=== PATIENT | male | born 1985 | race American Indian/Alaskan Native ===

== ENCOUNTER 2017-08-19 17:05 | Emergency (ER) | payer OTHER ==
[2017-08-19 17:12] VITALS: BMI 34.8
[2017-08-19 17:13] VITALS: RESP 18
[2017-08-19] MEDS ORDERED: Sodium Chloride 0.9% 1,000 ML IV STA (17:16)
[2017-08-19] MEDS ORDERED: DiphenhydrAMINE 50 mg/ml Inj IVP STA (17:16)
--- NOTE | 2017-08-19 17:19 | ED PDOC ---
Arrival/HPI - General Chief Complaint: Headache Time Seen by Provider: 08/19/17 17:10 Historian: Patient - History of Present Illness Narrative History of Present Illness (Text): 08/19/17 17:16 32 y/o male, pmh including migraine, c/o migraine headache about 1 hour ago at home. Aching and throbbing pain, feels like his usual migraine headache, took advil prior to arrival which the headache decreased but not completely resolved , no change in vision, no painful movement of the eye, no chest pain or shortness of breath, no night sweat, no numbness or tingling, no other medical or psychological complaints. Past Medical History - Provider Review Nursing Documentation Reviewed: Yes - Infectious Disease Hx of Infectious Diseases: None Family/Social History - Physician Review Nursing Documentation Reviewed: Yes Family/Social History: Unknown Family HX Allergies/Home Meds Allergies/Adverse Reactions: Allergies No Known Allergies Allergy (Verified 08/19/17 17:12) Review of Systems - Review of Systems Constitutional: absent: Fatigue, Fevers Eyes: absent: Vision Changes ENT: absent: Hearing Changes Respiratory: absent: SOB, Cough Cardiovascular: absent: Chest Pain Gastrointestinal: absent: Abdominal Pain, Nausea, Vomiting Musculoskeletal: absent: Arthralgias, Back Pain Skin: absent: Rash, Pruritis Neurological: Headache. absent: Dizziness, Focal Weakness Psychiatric: absent: Anxiety, Depression, Suicidal Ideation Physical Exam Vital Signs Reviewed: Yes Vital Signs Temp Pulse Resp BP Pulse Ox 08/19/17 17:05 99.3 F 86 18 127/78 99 Temperature: Afebrile Blood Pressure: Normal Pulse: Regular Respiratory Rate: Normal Appearance: Positive for: Well-Appearing, Non-Toxic, Comfortable Pain Distress: Moderate Mental Status: Positive for: Alert and Oriented X 3 - Systems Exam Head: Present: Atraumatic, Normocephalic, Other (no temporal artery tenderness, no jaw claudication. ). No: Tenderness, Contusion, Swelling, Ecchymosis, Abrasion, Laceration Pupils: Present: PERRL, Other (no periorbital swelling and no painful movement of the eye. ) Extroacular Muscles: Present: EOMI Conjunctiva: Present: Normal Ears: Present: NORMAL TM, Normal Canal. No: Erythema Mouth: Present: Moist Mucous Membranes Neck: Present: Normal Range of Motion, Trachea Midline. No: Meningeal Signs, MIDLINE TENDERNESS, Paraspinal Tenderness, Lymphadenopathy Respiratory/Chest: Present: Clear to Auscultation, Good Air Exchange. No: Respiratory Distress, Accessory Muscle Use Cardiovascular: Present: Regular Rate and Rhythm, Normal S1, S2. No: Murmurs Abdomen: No: Tenderness, Distention, Peritoneal Signs Back: Present: Normal Inspection Upper Extremity: Present: Normal Inspection. No: Cyanosis, Edema Lower Extremity: Present: Normal Inspection. No: Edema Neurological: Present: GCS=15, CN II-XII Intact, Speech Normal, Motor Func Grossly Intact, Gait Normal, Memory Normal, Other (negative kernig and brudzinski signs) Skin: Present: Warm, Dry, Normal Color. No: Rashes Psychiatric: Present: Alert, Oriented x 3, Normal Insight, Normal Concentration Medical Decision Making ED Course and Treatment: 08/19/17 17:18 -labs -IVF/reglan/benadryl -Observe and reassess 08/19/17 18:27 -Headache resolved, food and drinks given, request to be discharged home, afebrile, no focal neurological deficits, walking with normal gait and posture, no neck stiffness, will discharge home. Case discussed with Dr. Ly and he agreed on the dispo. Pt. has no homicida/suicidal ideation, no auditory or visual hallucination. -Discharge home tylenol, bed rest, stay hydrated, follow up with your own pmd and neurologist within 2 days, return to the ER for any new or worsening signs or symptoms. - Lab Interpretations Lab Results: 08/19/17 17:45 08/19/17 17:45 Lab Results 08/19/17 17:45: WBC 5.3, RBC 4.92, Hgb 13.9 L, Hct 42.4, MCV 86.2, MCH 28.3, MCHC 32.8, RDW 12.2, Plt Count 220, MPV 10.4, Gran % 49.4 L, Lymph % (Auto) 37.9 H, Hudson % (Auto) 4.3, Eos % (Auto) 7.3 H, Baso % (Auto) 1.1, Gran # 2.63, Lymph # (Auto) 2.0, Hudson # (Auto) 0.2, Eos # (Auto) 0.4, Baso # (Auto) 0.06 08/19/17 17:45: Sodium Pending, Potassium Pending, Chloride Pending, Carbon Dioxide Pending, Anion Gap Pending, BUN Pending, Creatinine 1.0, Est GFR ( Amer) > 60, Est GFR (Non-Af Amer) > 60, Random Glucose 98, Calcium 9.6, Magnesium Pending, Total Bilirubin 0.9, AST Pending, ALT Pending, Alkaline Phosphatase Pending, Total Creatine Kinase 179, Total Protein Pending, Albumin Pending, Globulin Pending, Albumin/Globulin Ratio Pending - Medication Orders Current Medication Orders: Discontinued Medications Diphenhydramine HCl (Benadryl) 25 mg IVP STAT STA Stop: 08/19/17 17:17 Last Admin: 08/19/17 17:50 Dose: 25 mg IVP Administration Document 08/19/17 17:50 SRE (Rec: 08/19/17 17:55 SRE [id number]) Charges for Administration # of IVP Administrations 1 Sodium Chloride (Sodium Chloride 0.9%) 1,000 mls @ 999 mls/hr IV .Q1H1M STA Stop: 08/19/17 18:16 Last Admin: 08/19/17 17:56 Dose: 999 mls/hr eMAR Start Stop Document 08/19/17 17:56 SRE (Rec: 08/19/17 17:57 SRE [id number]) Intravenous Solution Start Date 08/19/17 Start Time 17:30 End Date 08/19/17 End time 18:30 Total Infusion Time 60 Metoclopramide HCl (Reglan) 10 mg IVP STAT STA Stop: 08/19/17 17:17 Last Admin: 08/19/17 17:54 Dose: 10 mg IVP Administration Document 08/19/17 17:54 SRE (Rec: 08/19/17 17:54 SRE [id number]) Charges for Administration # of IVP Administrations 1 - PA / [employer] / Resident Statement /DO has reviewed & agrees with the documentation as recorded. Disposition/Present on Arrival - Present on Arrival Any Indicators Present on Arrival: No History of DVT/PE: No History of Uncontrolled Diabetes: No Urinary Catheter: No History of Decub. Ulcer: No History Surgical Site Infection Following: None - Disposition Have Diagnosis and Disposition been Completed?: Yes Diagnosis: Headache Disposition: HOME/ ROUTINE Disposition Time: 17:19 Patient Plan: Discharge Patient Problems: Current Active Problems Problem Status Onset Headache Acute Condition: IMPROVED Additional Instructions: -Discharge home tylenol, bed rest, stay hydrated, follow up with your own pmd and neurologist within 2 days, return to the ER for any new or worsening signs or symptoms. Prescriptions: Acetaminophen [Tylenol 325mg tab] 2 tab PO QID PRN #30 tab PRN Reason: Other Referrals: Candace Jo MD [Staff Provider] - Follow up with primary Forms: WORK NOTE
[2017-08-19 18:03] LABS: BASO # 0.06 K/mm3 (0.0-2.0); BASO % 1.1 % (0.0-3.0); EOS # 0.4 (0.0-0.7); EOS % 7.3 % (1.5-5.0); GRAN # 2.63 (1.4-6.5); GRAN % 49.4 % (50.0-68.0); HEMOGLOBIN 13.9 g/dL (14.0-18.0); LYMPH % 37.9 % (22.0-35.0); MEAN CELL VOLUME 86.2 fl (80.0-105.0); MEAN CORPUSCULAR HEMOGLOBIN 28.3 pg (25.0-35.0); MEAN CORPUSCULAR HGB CONC 32.8 g/dl (31.0-37.0); MEAN PLATELET VOLUME 10.4 fl (7.0-11.0); MONO # 0.2 (0.1-0.6); MONO % 4.3 % (1.0-6.0); RBC 4.92 10^6/uL (3.5-6.1); RED CELL DISTRIBUTION WIDTH 12.2 % (11.5-14.5); WHITE BLOOD COUNT 5.3 10^3/ul (4.5-11.0)
[2017-08-19 18:11] LABS: CALCIUM 9.6 mg/dL (8.4-10.5); GFR AFRICAN-AMERICAN > 60; GFR NON-AFRICAN AMERICAN > 60
[2017-08-19 18:30] VITALS: BP 112/62; PULSE 79; TEMP 98.7; O2SAT 97
[2017-08-19 18:38] LABS: ALB/GLOB RATIO 1.6 (1.1-1.8); ALBUMIN 4.7 g/dL (3.0-4.8); ALT/SGPT 43 U/L (7-56); AST/SGOT 42 U/L (17-59); BLOOD UREA NITROGEN 12 mg/dL (7-21)
== END 2017-08-19 19:00 | disposition home or self-care (01) ==
LOC: ED 17:05
DX: R51 Headache (principal)
CPT/HCPCS: 80053; 82550; 83735; 85025; 96361; 96374; 96375; 99285; J1200; J2765; J7040

== ENCOUNTER 2018-02-27 19:19 | Inpatient (IN) | payer OTHER ==
[2018-02-27 19:29] VITALS: BMI 28.0
[2018-02-27 19:35] VITALS: O2SAT 100
--- NOTE | 2018-02-27 19:48 | ED PDOC ---
Arrival/HPI - General Chief Complaint: Male Genitourinary Historian: Patient - History of Present Illness Narrative History of Present Illness (Text): 02/27/18 19:47 33yo male with no significant pmhx who present with complaint complaining depression. States he is going through much now and is pushing him to be suicidal, how ever he denies suicidal ideation. States he is currently homeless. Denies HI, hallucination, any somatic complaint. Past Medical History - Provider Review Nursing Documentation Reviewed: Yes - Infectious Disease Hx of Infectious Diseases: None - Psychiatric Hx Substance Use: Yes - Anesthesia Hx Anesthesia: No Family/Social History - Physician Review Nursing Documentation Reviewed: Yes Family/Social History: Unknown Family HX Smoking Status: Current Some Days Smoker Hx Alcohol Use: No Hx Substance Use: Yes Substance used: weed Allergies/Home Meds Allergies/Adverse Reactions: Allergies No Known Allergies Allergy (Verified 08/19/17 17:12) Home Medications: Home Meds Medication Instructions Recorded Confirmed No Known Home Med 02/27/18 02/27/18 Review of Systems - Physician Review All systems were reviewed & negative as marked: Yes - Review of Systems Constitutional: Normal Eyes: Normal ENT: Normal Respiratory: Normal Cardiovascular: Normal Gastrointestinal: Normal Genitourinary Male: Normal Musculoskeletal: Normal Skin: Normal Neurological: Normal Endocrine: Normal Hemo/Lymphatic: Normal Psychiatric: Depression. absent: Suicidal Ideation Physical Exam Vital Signs Reviewed: Yes Vital Signs Temp Pulse Resp BP Pulse Ox 02/27/18 19:30 98.2 F 95 H 18 136/79 100 Temperature: Afebrile Blood Pressure: Normal Pulse: Regular Respiratory Rate: Normal Appearance: Positive for: Well-Appearing, Non-Toxic, Comfortable Pain Distress: None Mental Status: Positive for: Alert and Oriented X 3 - Systems Exam Head: Present: Atraumatic, Normocephalic Pupils: Present: PERRL Extroacular Muscles: Present: EOMI Conjunctiva: Present: Normal Mouth: Present: Moist Mucous Membranes Neck: Present: Normal Range of Motion Respiratory/Chest: Present: Clear to Auscultation, Good Air Exchange. No: Respiratory Distress, Accessory Muscle Use Cardiovascular: Present: Regular Rate and Rhythm, Normal S1, S2. No: Murmurs Abdomen: No: Tenderness, Distention, Peritoneal Signs Back: Present: Normal Inspection Upper Extremity: Present: Normal Inspection. No: Cyanosis, Edema Lower Extremity: Present: Normal Inspection. No: Edema Neurological: Present: GCS=15, CN II-XII Intact, Speech Normal Skin: Present: Warm, Dry, Normal Color. No: Rashes Psychiatric: Present: Alert, Oriented x 3, Normal Insight, Normal Concentration Medical Decision Making ED Course and Treatment: 02/27/18 22:29 Pt presnted to ED for sated history. LAbs UDS EKG CXR PES screener Labs was unremarkable UDS + PCP, THC EKG NSR @ 62bpm CXR PES screener Pete saw pt in ED. DC with the psychiatrist and pt was admitted for depression. Disposition/Present on Arrival - Present on Arrival Any Indicators Present on Arrival: No History of DVT/PE: No History of Uncontrolled Diabetes: No Urinary Catheter: No History of Decub. Ulcer: No History Surgical Site Infection Following: None - Disposition Have Diagnosis and Disposition been Completed?: Yes Diagnosis: Depression, Substance abuse Disposition: HOSPITALIZED Disposition Time: 22:15 Patient Plan: Admission Patient Problems: Current Active Problems Problem Status Onset Depression Acute Substance abuse Acute Condition: STABLE Discharge Instructions (ExitCare): Depression, Adult (DC) Forms: [employer] ([place])
[2018-02-27 20:06] LABS: BASO # 0.07 K/mm3 (0.0-2.0); BASO % 1.1 % (0.0-3.0); EOS # 0.5 (0.0-0.7); EOS % 8.7 % (1.5-5.0); GRAN # 2.59 (1.4-6.5); GRAN % 42.4 % (50.0-68.0); LYMPH # 2.5 (1.2-3.4); LYMPH % 41.6 % (22.0-35.0); MEAN CELL VOLUME 88.2 fl (80.0-105.0); MEAN CORPUSCULAR HEMOGLOBIN 28.5 pg (25.0-35.0); MEAN CORPUSCULAR HGB CONC 32.3 g/dl (31.0-37.0); MEAN PLATELET VOLUME 9.8 fl (7.0-11.0); MONO # 0.4 (0.1-0.6); MONO % 6.2 % (1.0-6.0); PH,URINE 6.5 (4.7-8.0); RBC 4.92 10^6/uL (3.5-6.1); RED CELL DISTRIBUTION WIDTH 12.7 % (11.5-14.5); URINE BILIRUBIN NEGATIVE (NEGATIVE); URINE BLOOD NEGATIVE (NEGATIVE); URINE GLUCOSE (UA) NEGATIVE (NEGATIVE); URINE LEUKOCYTE ESTERASE NEGATIVE Leu/uL (NEGATIVE); URINE PROTEIN NEGATIVE mg/dL (<30 mg/dL); WHITE BLOOD COUNT 6.1 10^3/uL (4.5-11.0)
[2018-02-27 20:11] LABS: ACETAMINOPHEN < 10.0 ug/ml (10.0-20.0); ALB/GLOB RATIO 1.3 (1.1-1.8); ALBUMIN 4.3 g/dL (3.0-4.8); ALT/SGPT 38 U/L (7-56); AST/SGOT 40 U/L (17-59); BLOOD UREA NITROGEN 19 mg/dL (7-21); CALCIUM 9.3 mg/dL (8.4-10.5); GFR NON-AFRICAN AMERICAN > 60; SALICYLATE < 1 mg/dL (2.0-20.0)
[2018-02-27 20:12] LABS: URINE APPEARANCE CLEAR (CLEAR); URINE COLOR YELLOW (YELLOW)
[2018-02-27 20:36] LABS: BARBITURATES, UR NEGATIVE (NEGATIVE); BENZODIAZEPINES, UR NEGATIVE (NEGATIVE); OPIATES, UR NEGATIVE (NEGATIVE); PHENCYCLIDINE, UR POSITIVE (NEGATIVE)
[2018-02-28] MEDS ORDERED: Alum-Mag Hydrox-Simethicone Susp (30 mL) PO PRN (00:51)
[2018-02-28] MEDS ORDERED: Magnesium Hydroxide Susp 30 ml UD PO PRN (00:51)
--- NOTE | 2018-02-28 01:40 | PCM.BM ---
<Dahlia Kapoor - Last Filed: 02/28/18 01:38> Treatment Plan Problems - Problems identified on initial assessmt Problem 1 Date Initiated: 02/28/18 Time Initiated: 01:38 Assessment reference: NA Status: Active Problem 2 Date Initiated: 02/28/18 Time Initiated: 01:39 Assessment reference: NA Status: Active self care deficit Date Initiated: 02/28/18 Time Initiated: 01:39 Assessment reference: NA Status: Active <Rachlele Dewey - Last Filed: 02/28/18 08:27> - Diagnosis (1) Mood disorder due to known physiological condition, unspecified Status: Acute Interventions: 02/28/18 08:28 Psychoeducation Psychopharmacology/adjustment of medications as needed/ monitoring possible side effects Evaluate pt on daily basis Compliance with medications and follow up appointments Suicide and homicide risk assessment and prevention Relapse prevention Reduction of symptoms Improve functional status Family involvement As outpatient: cognitive behavioral therapy (2) Polysubstance abuse Status: Acute Interventions: 02/28/18 08:28 Monitoring withdrawal symptoms Medical detoxification Pharmacotherapy for alcohol/benzos/opioid dependence Maintaining sobriety Relapse prevention Possible rehabilitation Motivational interviewing 12-step programs: AA meetings <Natasha Jewell - Last Filed: 03/02/18 08:17> Family Contact Family involvement: Famliy/SO not involved <Muna Vences - Last Filed: 03/02/18 11:14>
--- NOTE | 2018-02-28 08:00 | RAD ---
Date of service: 02/27/2018 HISTORY: admission COMPARISON: No prior. FINDINGS: LUNGS: No active pulmonary disease. PLEURA: No significant pleural effusion identified, no pneumothorax apparent. CARDIOVASCULAR: No aortic atherosclerotic calcification present. Normal cardiac size. No pulmonary vascular congestion. OSSEOUS STRUCTURES: No significant abnormalities. VISUALIZED UPPER ABDOMEN: Normal. OTHER FINDINGS: None. IMPRESSION: No active disease.
[2018-02-28 08:24] LABS: GLUCOSE,FASTING 91 mg/dL (65-110); HDL CHOLESTEROL 69 mg/dL (29-60)
[2018-02-28 08:35] LABS: LDL CHOLESTEROL 82 mg/dL (0-129)
--- NOTE | 2018-02-28 11:31 | CARD ---
APPROVED REPORT Date of service: 02/27/2018 EKG Measurement Heart [id number] <Conclusion> Normal sinus rhythm Normal ECG
--- NOTE | 2018-02-28 13:51 | PCM.PSYCH ---
Initial Psychiatric Evaluation - Initial Psychiatric Evaluation Type of Admission: Voluntary Legal Status: Capacity (patient has capacity to sign consent for treatment) Chief Complaint (in patient's own words): "I lost my keys, I lost my wallet, I lost my money, my mother's phone number [phone]........." pt was falling asleep and saying random numbers. Patient's Reaction to Hospitalization: pt was admitted for evaluation of depressive symptoms, possible suicidal ideation and psychosis. History of Present Illness and Precipitating Events: year old [place] AA male with not known previous history of psychiatric admissions, not known previous psychiatric history, patient has history of substance abuse and dependence, patient denied history of admission to the psychiatric inpatient unit, patient came to the hospital for evaluation of depressive symptoms, possible suicidal ideation, patient requires further evaluation and stabilization and medications adjustment and titration. Patient was seen today at the morning time at the treatment team meeting Room, patient presented to be sleepy, poor personal hygiene, good ADLs, no eye contact, patient had difficulties to stay focused and concentrate during the interview, patient was falling asleep during the interview. patient reported that he lost his case, while at, money, patient reported that she lost it" in the hallway", patient was not able to participate in interview, patient reported that he was kicked out from his mother's home because of drugs, patient said that he hears voices in his had, reported that he feels depressed and suicidal no clear plan. Patient gave permission to talk to his mother, when was asked what is the phone number patient was giving random numbers about 15-20 numbers patient is too psychotic. pt reported smoking marijuana and UDS was positive for PCP and THC. as per PES pt had "odd urinary symptoms", as per RN report pt presented to be psychotic, was whispering while talking. as per pt, he does not smoke, does not drinking alcohol. past psych h/o: pt denied being admitted to psych, denied suicidal attempts. Family h/o significant for mental illness, brother was dx with schizophrenia. Medical h/o: pt reported being healthy. 02/27/18 19:53 02/27/18 19:53 Lab Results 02/28/18 07:45: TSH 3rd Generation 0.71 02/28/18 07:45: Fasting Glucose 91, Triglycerides 61, Cholesterol 162, LDL Cholesterol Direct 82, HDL Cholesterol 69 H 02/27/18 19:53: Alcohol, Quantitative < 10 02/27/18 19:53: Salicylates < 1 L, Acetaminophen < 10.0 L 02/27/18 19:53: Urine Opiates Screen Negative, Urine Methadone Screen Negative, Ur Barbiturates Screen Negative, Ur Phencyclidine Scrn Positive H, Ur Amphetamines Screen Negative, U Benzodiazepines Scrn Negative, U Oth Cocaine Metabols Negative, U Cannabinoids Screen Positive H 02/27/18 19:53: Sodium 137, Potassium 4.1, Chloride 99, Carbon Dioxide 28, Anion Gap 14, BUN 19, Creatinine 1.2, Est GFR ( Amer) > 60, Est GFR (Non-Af Amer) > 60, Random Glucose 102, Calcium 9.3, Magnesium 1.8, Total Bilirubin 0.7, AST 40, ALT 38, Alkaline Phosphatase 64, Total Protein 7.5, Albumin 4.3, Globulin 3.2, Albumin/Globulin Ratio 1.3 02/27/18 19:53: Urine Color Yellow, Urine Appearance Clear, Urine pH 6.5, Ur Specific [place] 1.025, Urine Protein Negative, Urine Glucose (UA) Negative, Urine Ketones Negative, Urine Blood Negative, Urine Nitrate Negative, Urine Bilirubin Negative, Urine Urobilinogen 4.0 H, Ur Leukocyte Esterase Negative 02/27/18 19:53: WBC 6.1, RBC 4.92, Hgb 14.0, Hct 43.4, MCV 88.2, MCH 28.5, MCHC 32.3, RDW 12.7, Plt Count 232, MPV 9.8, Gran % 42.4 L, Lymph % (Auto) 41.6 H, [place] % (Auto) 6.2 H, Eos % (Auto) 8.7 H, Baso % (Auto) 1.1, Gran # 2.59, Lymph # (Auto) 2.5, [place] # (Auto) 0.4, Eos # (Auto) 0.5, Baso # (Auto) 0.07 Vital Signs Temp Pulse Resp BP Pulse Ox 02/28/18 07:22 98.0 F 66 20 118/76 02/27/18 23:37 74 18 127/85 100 02/27/18 22:29 78 18 126/68 100 02/27/18 21:20 89 18 132/70 100 02/27/18 19:30 98.2 F 95 H 18 136/79 100 The patient failed the outpatient lower level of care: Yes Current Medications: Active Medications Generic Name Dose Route Start Last Admin Trade Name Freq PRN Reason Stop Dose Admin Acetaminophen 650 mg 02/28/18 00:51 Tylenol 325mg Tab PO Q6H PRN Fever >100.4 F Al Hydrox/Mg Hydrox/Simethicone 30 ml 02/28/18 00:51 Maalox Plus 30 Ml PO DAILY PRN Upset Stomach Haloperidol 5 mg 02/28/18 00:51 02/28/18 01:17 Haldol PO 5 mg Q6 PRN Administration Agitation Protocol Haloperidol Lactate 5 mg 02/28/18 00:55 Haldol IM Q6 PRN Agitation Protocol Lorazepam 2 mg 02/28/18 00:51 02/28/18 01:17 Ativan PO 2 mg Q6H PRN Administration Anxiety Protocol Lorazepam 2 mg 02/28/18 00:54 Ativan IM Q6H PRN Anxiety Protocol Magnesium Hydroxide 30 ml 02/28/18 00:51 Milk Of Magnesia PO DAILY PRN Constipation Quetiapine Fumarate 25 mg 02/28/18 08:00 Seroquel PO DAILY OLY Protocol Quetiapine Fumarate 50 mg 02/28/18 22:00 Seroquel PO HS OLY Protocol Present on Admission - Present on Admission Any Indicators Present on Admission: No Review of Systems - Review of Systems Systems not reviewed;Unavailable: Acuity of Condition - Constitutional Constitutional: As Per HPI - EENT Eyes: As Per HPI Ears: As Per HPI Nose/Mouth/Throat: As Per HPI - Cardiovascular Cardiovascular: As Per HPI - Respiratory Respiratory: As Per HPI - Gastrointestinal Gastrointestinal: As Per HPI - Genitourinary Genitourinary: As Per HPI - Reproductive: Male Reproductive:Male: As Per HPI - Musculoskeletal Musculoskeletal: As Per HPI - Integumentary Integumentary: As Per HPI - Neurological Neurological: As Per HPI - Psychiatric Psychiatric: As Per HPI - Endocrine Endocrine: As Per HPI - Hematologic/Lymphatic Hematologic: As Per HPI Past Patient History - Past Psychiatric History Previous Treatment History: None Prior Professional Help: see HPI Prior Psychiatric Treatment: see HPI At what hospital: see HPI Duration: see HPI Nature of Treatment: see HPI - PSYCHIATRIC Hx Psychophysiologic Disorder: No Hx Substance Use: Yes - Infectious Disease Hx of Infectious Diseases: None - CARDIAC Hx Cardiac Disorders: No Hx Hypertension: No - PULMONARY Hx Tuberculosis: No - NEUROLOGICAL HX Cerebrovascular Accident: No Hx Seizures: No - HEMATOLOGICAL/ONCOLOGICAL Hx Cancer: No Hx Human Immunodeficiency Virus (HIV): No - GENITOURINARY/GYNECOLOGICAL Hx Sexually Transmitted Disorders: No - ANESTHESIA Hx Anesthesia: No - Medical/Surgical History Reviewed & confirmed: by nm Meds Allergies/Adverse Reactions: Allergies Allergy/AdvReac Type Severity Reaction Status Date / Time No Known Allergies Allergy Verified 02/28/18 00:32 Mental Status Examination - Personal Presentation Personal Presentation: Looks stated age - Affect Affect: Blunted - Motor Activity Motor Activity: Psychomotor Retardation - Reliability in Providing Information Reliability in Providing Information: Poor, due to alteration in thoughts, Poor, due to cognitve impairment - Speech Speech: Disorganized - Mood Mood: Depressed - Formal Thought Process Formal Thought Process: Delusions, Paranoia - Obsessions/Compulsions Obsessions: None Compulsions: None - Cognitive Functions Orientation: Person, Place Sensorium: Drowsy Attention/Concentration: Easily distracted Abstract Thinking: Hector Estimate of Intelligence: Below average Judgement: Intact, as evidence by: Insight regarding need for hospitalization - Risk Risk: Self-mutilation, Diminished functioning - Strength & Assets Inventory Strength & Assets Inventory: Cooperative, Other (good physical health) - Limitations Limitations: Other (pt is homeless, polysubstance abuse) Psychiatric Physical Exam - Physical Exam Reviewed and confirmed: Emergency Department Physical Exam Results - Vital Signs Recent Vital Signs: Last Vital Signs Temp 98.0 F 02/28/18 07:22 Pulse 66 02/28/18 07:22 Resp 20 02/28/18 07:22 BP 118/76 02/28/18 07:22 Pulse Ox 100 02/27/18 23:37 - Labs Result Diagrams: 02/27/18 19:53 02/27/18 19:53 Labs: Laboratory Results - last 24 hr 02/27/18 02/27/18 02/27/18 19:53 19:53 19:53 WBC 6.1 RBC 4.92 Hgb 14.0 Hct 43.4 MCV 88.2 MCH 28.5 MCHC 32.3 RDW 12.7 Plt Count 232 MPV 9.8 Gran % 42.4 L Lymph % (Auto) 41.6 H [place] % (Auto) 6.2 H Eos % (Auto) 8.7 H Baso % (Auto) 1.1 Gran # 2.59 Lymph # (Auto) 2.5 [place] # (Auto) 0.4 Eos # (Auto) 0.5 Baso # (Auto) 0.07 Sodium 137 Potassium 4.1 Chloride 99 Carbon Dioxide 28 Anion Gap 14 BUN 19 Creatinine 1.2 Est GFR ( Amer) > 60 Est GFR (Non-Af Amer) > 60 Random Glucose 102 Fasting Glucose Calcium 9.3 Magnesium 1.8 Total Bilirubin 0.7 AST 40 ALT 38 Alkaline Phosphatase 64 Total Protein 7.5 Albumin 4.3 Globulin 3.2 Albumin/Globulin Ratio 1.3 Triglycerides Cholesterol HDL Cholesterol Urine Color Yellow Urine Appearance Clear Urine pH 6.5 Ur Specific [place] 1.025 Urine Protein Negative Urine Glucose (UA) Negative Urine Ketones Negative Urine Blood Negative Urine Nitrate Negative Urine Bilirubin Negative Urine Urobilinogen 4.0 H Ur Leukocyte Esterase Negative Salicylates Urine Opiates Screen Urine Methadone Screen Acetaminophen Ur Barbiturates Screen Ur Phencyclidine Scrn Ur Amphetamines Screen U Benzodiazepines Scrn U Oth Cocaine Metabols U Cannabinoids Screen Alcohol, Quantitative 02/27/18 02/27/18 02/27/18 19:53 19:53 19:53 WBC RBC Hgb Hct MCV MCH MCHC RDW Plt Count MPV Gran % Lymph % (Auto) [place] % (Auto) Eos % (Auto) Baso % (Auto) Gran # Lymph # (Auto) [place] # (Auto) Eos # (Auto) Baso # (Auto) Sodium Potassium Chloride Carbon Dioxide Anion Gap BUN Creatinine Est GFR ( Amer) Est GFR (Non-Af Amer) Random Glucose Fasting Glucose Calcium Magnesium Total Bilirubin AST ALT Alkaline Phosphatase Total Protein Albumin Globulin Albumin/Globulin Ratio Triglycerides Cholesterol HDL Cholesterol Urine Color Urine Appearance Urine pH Ur Specific [place] Urine Protein Urine Glucose (UA) Urine Ketones Urine Blood Urine Nitrate Urine Bilirubin Urine Urobilinogen Ur Leukocyte Esterase Salicylates < 1 L Urine Opiates Screen Negative Urine Methadone Screen Negative Acetaminophen < 10.0 L Ur Barbiturates Screen Negative Ur Phencyclidine Scrn Positive H Ur Amphetamines Screen Negative U Benzodiazepines Scrn Negative U Oth Cocaine Metabols Negative U Cannabinoids Screen Positive H Alcohol, Quantitative < 10 02/28/18 07:45 WBC RBC Hgb Hct MCV MCH MCHC RDW Plt Count MPV Gran % Lymph % (Auto) [place] % (Auto) Eos % (Auto) Baso % (Auto) Gran # Lymph # (Auto) [place] # (Auto) Eos # (Auto) Baso # (Auto) Sodium Potassium Chloride Carbon Dioxide Anion Gap BUN Creatinine Est GFR ( Amer) Est GFR (Non-Af Amer) Random Glucose Fasting Glucose 91 Calcium Magnesium Total Bilirubin AST ALT Alkaline Phosphatase Total Protein Albumin Globulin Albumin/Globulin Ratio Triglycerides 61 Cholesterol 162 HDL Cholesterol 69 H Urine Color Urine Appearance Urine pH Ur Specific [place] Urine Protein Urine Glucose (UA) Urine Ketones Urine Blood Urine Nitrate Urine Bilirubin Urine Urobilinogen Ur Leukocyte Esterase Salicylates Urine Opiates Screen Urine Methadone Screen Acetaminophen Ur Barbiturates Screen Ur Phencyclidine Scrn Ur Amphetamines Screen U Benzodiazepines Scrn U Oth Cocaine Metabols U Cannabinoids Screen Alcohol, Quantitative - EKG Data EKG Interpreted by: ER Physician DSM Plan - DSM 5 DSM 5 Diagnosis: psychosis nos r/o substance induced psychosis r/o substance induced mood disorder polysubstance abuse - Recommended/Plan of Treatment Treatment Recommendations and Plan of Treatment: Milieu/structure/supportive therapy Medical consult will be considered Seroquel was started 25 mg daily and 50 at the nighttime for psychosis As needed medications SW consultation for discharge plan and social issues Family involvement Follow up on labs Will monitor closely Pt was educated about risk/benefits and alternatives of medications, coping strategies (safety plan, suicide prevention), relapse prevention, importance of follow up with psychiatrist and therapist, stay away from drugs/alcohol/smoking Projected ELOS: 7 days Prognosis: fair Discharge Plan and Discharge Criteria: Pt will be not depressed or manic, will be more hopeful, will be not psychotic or anxious, will be not having thoughts of harming self or others, will be tolerating medications well, will not have major side effects, will be able to function, will not pose threat to self or others. - Tobacco Cessation Tobacco Use Treatment Practical Counseling Provided: No Reason for not providing: pt denied smoking - Alcohol or Substance Abuse Does the patient have an Alcohol or Substance Abuse Disorder: Yes Initial Psych Certification - Initial Certification I certify that the inpatient psychiatric facility admission was medically necessary for either: Treatment which could reasonbly be expected to improve pt's condition, Diagnostic study I estimate of hospitalization is necessary for proper treatment of the patient: 7 Unit of Time: Days My plans for post-hospital care for this patient are: dual diagnosis program possible inpatient rehab
--- NOTE | 2018-03-01 14:37 | PCM.PYCHPN ---
Psychiatric Progress Note - Psychiatric Progress Note Patient seen today, length of contact: 30 minutes Patient Chief Complaint: "run with [employer] it's in [place] because it's good, people do a lot of things. It's continues this movement...love. People are finding ways to make love with themselves....that's why there's [facility]." patient completely disorganized Problems Identified/Issues Discussed: Suicide/ homicide prevention, past psychiatric h/o, current psychiatric symptoms, medical problems, risk/benefits and alternatives of medications, medications compliance, coping strategies, substance abuse h/o, relapse prevention, importance of follow up with psychiatrist and therapist, discharge plan. Medical Problems: patient reported being healthy Diagnostic Results: 02/27/18 19:53 02/27/18 19:53 Lab Results 02/28/18 07:45: TSH 3rd Generation 0.71 02/28/18 07:45: Fasting Glucose 91, Triglycerides 61, Cholesterol 162, LDL Cholesterol Direct 82, HDL Cholesterol 69 H 02/28/18 07:45: RPR Nonreactive 02/27/18 19:53: Alcohol, Quantitative < 10 02/27/18 19:53: Salicylates < 1 L, Acetaminophen < 10.0 L 02/27/18 19:53: Urine Opiates Screen Negative, Urine Methadone Screen Negative, Ur Barbiturates Screen Negative, Ur Phencyclidine Scrn Positive H, Ur Amphetamines Screen Negative, U Benzodiazepines Scrn Negative, U Oth Cocaine Met abols Negative, U Cannabinoids Screen Positive H 02/27/18 19:53: Sodium 137, Potassium 4.1, Chloride 99, Carbon Dioxide 28, Anion Gap 14, BUN 19, Creatinine 1.2, Est GFR ( Amer) > 60, Est GFR (Non-Af Amer) > 60, Random Glucose 102, Calcium 9.3, Magnesium 1.8, Total Bilirubin 0.7, AST 40, ALT 38, Alkaline Phosphatase 64, Total Protein 7.5, Albumin 4.3, Globulin 3.2, Albumin/Globulin Ratio 1.3 02/27/18 19:53: Urine Color Yellow, Urine Appearance Clear, Urine pH 6.5, Ur Specific [place] 1.025, Urine Protein Negative, Urine Glucose (UA) Negative, Urine Ketones Negative, Urine Blood Negative, Urine Nitrate Negative, Urine Bilirubin Negative, Urine Urobilinogen 4.0 H, Ur Leukocyte Esterase Negative 02/27/18 19:53: WBC 6.1, RBC 4.92, Hgb 14.0, Hct 43.4, MCV 88.2, MCH 28.5, MCHC 32.3, RDW 12.7, Plt Count 232, MPV 9.8, Gran % 42.4 L, Lymph % (Auto) 41.6 H, [place] % (Auto) 6.2 H, Eos % (Auto) 8.7 H, Baso % (Auto) 1.1, Gran # 2.59, Lymph # (Auto) 2.5, [place] # (Auto) 0.4, Eos # (Auto) 0.5, Baso # (Auto) 0.07 Vital Signs Temp Pulse Resp BP Pulse Ox 03/01/18 07:21 97.9 F 75 20 120/89 02/28/18 16:00 70 110/75 02/28/18 07:22 98.0 F 66 20 118/76 02/27/18 23:37 74 18 127/85 100 02/27/18 22:29 78 18 126/68 100 02/27/18 21:20 89 18 132/70 100 02/27/18 19:30 98.2 F 95 H 18 136/79 100 DSM 5 Symptoms Update: pt is 33year old [place] AA male with not known previous history of psychiatric admissions, not known previous psychiatric history, patient has history of substance abuse and dependence, patient denied history of admission to the psychiatric inpatient unit, patient came to the hospital for evaluation of depressive symptoms, possible suicidal ideation, patient requires further evaluation and stabilization and medications adjustment and titration. Patient was seen today at the morning time at the treatment team meeting, patient presented to be sleepy, poor personal hygiene, good ADLs, no eye contact, patient had difficulties to stay focused and concentrate during the interview, initially presented well, but withing a few minutes pt was saying "run with [employer] it's in [place] because it's good, people do a lot of things. It's continues this movement...love. People are finding ways to make love with themselves....that's why there's [employer].", delusional perceptions. as per staff pt is psychotic but not aggressive. so far patient tolerates medications well, no side effects observed or reported, aims 0, no EPS. DSM 5 Diagnosis: psychosis nos rule out schizophrenia r/o substance induced psychosis r/o substance induced mood disorder polysubstance abuse Medication Change: Yes (Seroquel increased) Medical Record Reviewed: Yes Consults ordered or reviewed: patient seems to be healthy, vital signs are stable. Mental Status Examination - Cognitive Function Orientation: Person, Place Memory: Impaired Attention: Poor Concentration: Poor Association: Loose Fund of Knowledge: Poor - Mood Mood: Depressed - Affect Affect: Blunted - Formal Thought Process Formal Thought Process: Hallucinations, Delusions, Paranoia, Flight of ideas, Circumstantial, Thought Broadcasting, Word Salad, Perservation - Suicidal Ideation Suicidal Ideation: No - Homicidal Ideation Homicidal Ideation: No Goal/Treatment Plan - Goal/Treatment Plan Need for Continued Stay: Remain at risks for inpatient hospitalization, Severe depression anxiety, Discharge may exacerbated symptoms, Severe functional impairment Progress Toward Problem(s) and Goals/Treatment Plan: Milieu/structure/supportive therapy Medical consult will be considered Seroquel 100mg po am and nighttime for psychosis As needed medications SW consultation for discharge plan and social issues Family involvement Follow up on labs Will monitor closely Pt was educated about risk/benefits and alternatives of medications, coping strategies (safety plan, suicide prevention), relapse prevention, importance of follow up with psychiatrist and therapist, stay away from drugs/alcohol/smoking Estimated Date of D/C: 03/06/18
--- NOTE | 2018-03-02 14:03 | PCM.PYCHPN ---
Psychiatric Progress Note - Psychiatric Progress Note Patient seen today, length of contact: 30 minutes Patient Chief Complaint: "run with [employer] it's in [place] because it's good, people do a lot of things. It's continues this movement...love. People are finding ways to make love with themselves....that's why there's [facility]." patient completely disorganized Problems Identified/Issues Discussed: Suicide/ homicide prevention, past psychiatric h/o, current psychiatric symptoms, medical problems, risk/benefits and alternatives of medications, medications compliance, coping strategies, substance abuse h/o, relapse prevention, importance of follow up with psychiatrist and therapist, discharge plan. Medical Problems: patient reported being healthy Diagnostic Results: 02/27/18 19:53 02/27/18 19:53 Lab Results 02/28/18 07:45: TSH 3rd Generation 0.71 02/28/18 07:45: Fasting Glucose 91, Triglycerides 61, Cholesterol 162, LDL Cholesterol Direct 82, HDL Cholesterol 69 H 02/28/18 07:45: RPR Nonreactive 02/27/18 19:53: Alcohol, Quantitative < 10 02/27/18 19:53: Salicylates < 1 L, Acetaminophen < 10.0 L 02/27/18 19:53: Urine Opiates Screen Negative, Urine Methadone Screen Negative, Ur Barbiturates Screen Negative, Ur Phencyclidine Scrn Positive H, Ur Amphetamines Screen Negative, U Benzodiazepines Scrn Negative, U Oth Cocaine Met abols Negative, U Cannabinoids Screen Positive H 02/27/18 19:53: Sodium 137, Potassium 4.1, Chloride 99, Carbon Dioxide 28, Anion Gap 14, BUN 19, Creatinine 1.2, Est GFR ( Amer) > 60, Est GFR (Non-Af Amer) > 60, Random Glucose 102, Calcium 9.3, Magnesium 1.8, Total Bilirubin 0.7, AST 40, ALT 38, Alkaline Phosphatase 64, Total Protein 7.5, Albumin 4.3, Globulin 3.2, Albumin/Globulin Ratio 1.3 02/27/18 19:53: Urine Color Yellow, Urine Appearance Clear, Urine pH 6.5, Ur Specific [place] 1.025, Urine Protein Negative, Urine Glucose (UA) Negative, Urine Ketones Negative, Urine Blood Negative, Urine Nitrate Negative, Urine Bilirubin Negative, Urine Urobilinogen 4.0 H, Ur Leukocyte Esterase Negative 02/27/18 19:53: WBC 6.1, RBC 4.92, Hgb 14.0, Hct 43.4, MCV 88.2, MCH 28.5, MCHC 32.3, RDW 12.7, Plt Count 232, MPV 9.8, Gran % 42.4 L, Lymph % (Auto) 41.6 H, [place] % (Auto) 6.2 H, Eos % (Auto) 8.7 H, Baso % (Auto) 1.1, Gran # 2.59, Lymph # (Auto) 2.5, [place] # (Auto) 0.4, Eos # (Auto) 0.5, Baso # (Auto) 0.07 Vital Signs Temp Pulse Resp BP Pulse Ox 03/01/18 07:21 97.9 F 75 20 120/89 02/28/18 16:00 70 110/75 02/28/18 07:22 98.0 F 66 20 118/76 02/27/18 23:37 74 18 127/85 100 02/27/18 22:29 78 18 126/68 100 02/27/18 21:20 89 18 132/70 100 02/27/18 19:30 98.2 F 95 H 18 136/79 100 DSM 5 Symptoms Update: pt is 33year old [place] AA male with not known previous history of psychiatric admissions, not known previous psychiatric history, patient has history of substance abuse and dependence, patient denied history of admission to the psychiatric inpatient unit, patient came to the hospital for evaluation of depressive symptoms, possible suicidal ideation, patient requires further evaluation and stabilization and medications adjustment and titration. Patient was seen today Of the nursing station, patient presented with some improvement with his psychosis, thought process is more organized but patient still delusional, psychotic, disorganized. pt said he will move to [place] to stay with his father. as per staff pt is psychotic but not aggressive. so far patient tolerates medications well, no side effects observed or reported, aims 0, no EPS. DSM 5 Diagnosis: psychosis nos rule out schizophrenia r/o substance induced psychosis r/o substance induced mood disorder polysubstance abuse Medication Change: Yes (Seroquel increased) Medical Record Reviewed: Yes Mental Status Examination - Cognitive Function Orientation: Person, Place Memory: Impaired Attention: Poor Concentration: Poor Association: Loose Fund of Knowledge: Poor - Mood Mood: Depressed - Affect Affect: Blunted - Formal Thought Process Formal Thought Process: Hallucinations, Delusions, Paranoia, Flight of ideas, Circumstantial, Thought Broadcasting, Word Salad, Perservation - Suicidal Ideation Suicidal Ideation: No - Homicidal Ideation Homicidal Ideation: No Goal/Treatment Plan - Goal/Treatment Plan Need for Continued Stay: Remain at risks for inpatient hospitalization, Severe depression anxiety, Discharge may exacerbated symptoms, Severe functional impairment Progress Toward Problem(s) and Goals/Treatment Plan: Milieu/structure/supportive therapy Medical consult will be considered Seroquel 100mg po am and nighttime for psychosis As needed medications SW consultation for discharge plan and social issues Family involvement Follow up on labs Will monitor closely Pt was educated about risk/benefits and alternatives of medications, coping strategies (safety plan, suicide prevention), relapse prevention, importance of follow up with psychiatrist and therapist, stay away from drugs/alcohol/smoking Estimated Date of D/C: 03/06/18
--- NOTE | 2018-03-03 13:50 | PCM.PYCHPN ---
Psychiatric Progress Note - Psychiatric Progress Note Patient seen today, length of contact: 30 minutes Patient Chief Complaint: "run with [employer] it's in [place] because it's good, people do a lot of things. It's continues this movement...love, smokes comes to [facility]. People are finding ways to make love with themselves....that's why there's [employer]." Problems Identified/Issues Discussed: Suicide/ homicide prevention, past psychiatric h/o, current psychiatric symptoms, medical problems, risk/benefits and alternatives of medications, medications compliance, coping strategies, substance abuse h/o, relapse prevention, importance of follow up with psychiatrist and therapist, discharge plan. Medical Problems: patient reported being healthy Diagnostic Results: 02/27/18 19:53 02/27/18 19:53 Lab Results 02/28/18 07:45: TSH 3rd Generation 0.71 02/28/18 07:45: Fasting Glucose 91, Triglycerides 61, Cholesterol 162, LDL Cholesterol Direct 82, HDL Cholesterol 69 H 02/28/18 07:45: RPR Nonreactive 02/27/18 19:53: Alcohol, Quantitative < 10 02/27/18 19:53: Salicylates < 1 L, Acetaminophen < 10.0 L 02/27/18 19:53: Urine Opiates Screen Negative, Urine Methadone Screen Negative, Ur Barbiturates Screen Negative, Ur Phencyclidine Scrn Positive H, Ur Amphetamines Screen Negative, U Benzodiazepines Scrn Negative, U Oth Cocaine Metabols Negative, U Cannabinoids Screen Positive H 02/27/18 19:53: Sodium 137, Potassium 4.1, Chloride 99, Carbon Dioxide 28, Anion Gap 14, BUN 19, Creatinine 1.2, Est GFR ( Amer) > 60, Est GFR (Non-Af Amer) > 60, Random Glucose 102, Calcium 9.3, Magnesium 1.8, Total Bilirubin 0.7, AST 40, ALT 38, Alkaline Phosphatase 64, Total Protein 7.5, Albumin 4.3, Globulin 3.2, Albumin/Globulin Ratio 1.3 02/27/18 19:53: Urine Color Yellow, Urine Appearance Clear, Urine pH 6.5, Ur Specific [place] 1.025, Urine Protein Negative, Urine Glucose (UA) Negative, Urine Ketones Negative, Urine Blood Negative, Urine Nitrate Negative, Urine Bilirubin Negative, Urine Urobilinogen 4.0 H, Ur Leukocyte Esterase Negative 02/27/18 19:53: WBC 6.1, RBC 4.92, Hgb 14.0, Hct 43.4, MCV 88.2, MCH 28.5, MCHC 32.3, RDW 12.7, Plt Count 232, MPV 9.8, Gran % 42.4 L, Lymph % (Auto) 41.6 H, [place] % (Auto) 6.2 H, Eos % (Auto) 8.7 H, Baso % (Auto) 1.1, Gran # 2.59, Lymph # (Auto) 2.5, [place] # (Auto) 0.4, Eos # (Auto) 0.5, Baso # (Auto) 0.07 Vital Signs Temp Pulse Resp BP Pulse Ox 03/01/18 07:21 97.9 F 75 20 120/89 02/28/18 16:00 70 110/75 02/28/18 07:22 98.0 F 66 20 118/76 02/27/18 23:37 74 18 127/85 100 02/27/18 22:29 78 18 126/68 100 02/27/18 21:20 89 18 132/70 100 02/27/18 19:30 98.2 F 95 H 18 136/79 100 DSM 5 Symptoms Update: pt is 33year old [place] AA male with not known previous history of psychiatric admissions, not known previous psychiatric history, patient has history of substance abuse and dependence, patient denied history of admission to the psychiatric inpatient unit, patient came to the hospital for evaluation of depressive symptoms, possible suicidal ideation, patient requires further evaluation and stabilization and medications adjustment and titration. Patient was seen today in his room, patient presented to be disorganized but try his best to present well. As per outreach and education social worker as well as recreational therapist patient requested them to download [facility] as well as [id number] in order to find what balances on his accounts, pt was not able to understand why it is not an option now. pt was talking about [employer] and "smoke cigarettes, smoke and [employer]". as per report from the nursing staff, patient was agitated, punched the door, needed to be medicated with Haldol and Ativan IM. so far patient tolerates medications well, no side effects observed or reported, aims 0, no EPS. DSM 5 Diagnosis: psychosis nos rule out schizophrenia r/o substance induced psychosis r/o substance induced mood disorder polysubstance abuse Medication Change: Yes (seroquel increased) Medical Record Reviewed: Yes Consults ordered or reviewed: patient seems to be healthy, vital signs are stable. Mental Status Examination - Cognitive Function Orientation: Person, Place Memory: Impaired Attention: Poor Concentration: Poor Association: Loose Fund of Knowledge: Poor - Mood Mood: Depressed - Affect Affect: Blunted - Formal Thought Process Formal Thought Process: Hallucinations, Delusions, Paranoia, Flight of ideas, Circumstantial, Thought Broadcasting, Word Salad, Perservation - Suicidal Ideation Suicidal Ideation: No - Homicidal Ideation Homicidal Ideation: No Goal/Treatment Plan - Goal/Treatment Plan Need for Continued Stay: Remain at risks for inpatient hospitalization, Severe depression anxiety, Discharge may exacerbated symptoms, Severe functional impairment Progress Toward Problem(s) and Goals/Treatment Plan: Milieu/structure/supportive therapy Medical consult will be considered Seroquel 200mg po am and nighttime for psychosis As needed medications SW consultation for discharge plan and social issues Family involvement Follow up on labs Will monitor closely Pt was educated about risk/benefits and alternatives of medications, coping strategies (safety plan, suicide prevention), relapse prevention, importance of follow up with psychiatrist and therapist, stay away from drugs/alcohol/smoking Estimated Date of D/C: 03/06/18
--- NOTE | 2018-03-04 09:57 | PCM.PYCHPN ---
Psychiatric Progress Note - Psychiatric Progress Note Patient seen today, length of contact: 30 minutes Problems Identified/Issues Discussed: I reviewed assessment and recent notes. Patient was interviewed at bedside. He is reasonably groomed and superficially cooperative with my introduction and questioning. Overall his affect is odd, unrelated and paranoid. Nonetheless he is oriented to month, year and location. He denies hallucinations but it doesn't take much intervention on my part to elicit random paranoid delusions from him. He tells me "you don't understand, YOU DON'T UNDERSTAND, the people are gossiping, you don't know what's going on". Patient has been disorganized on the unit with periods of agitation requiring IM medications. Patient can be isolative but has been more visible on the unit. Could tolerate being around peers in the dayroom, eating snacks, watching tv and drawing. Thus far there have been no behavioral issues over the weekend. Diagnostic Results: psychosis nos rule out schizophrenia r/o substance induced psychosis r/o substance induced mood disorder polysubstance abuse Medication Change: Yes (seroquel increased) Medical Record Reviewed: Yes Mental Status Examination - Cognitive Function Orientation: Person, Place Memory: Impaired Attention: Poor Concentration: Poor Association: Loose Fund of Knowledge: Poor - Mood Mood: Depressed - Affect Affect: Blunted - Formal Thought Process Formal Thought Process: Hallucinations, Delusions, Paranoia, Flight of ideas, Ci rcumstantial, Thought Broadcasting, Word Salad, Perservation - Suicidal Ideation Suicidal Ideation: No - Homicidal Ideation Homicidal Ideation: No Goal/Treatment Plan - Goal/Treatment Plan Need for Continued Stay: Remain at risks for inpatient hospitalization, Severe depression anxiety, Discharge may exacerbated symptoms, Severe functional impairment Progress Toward Problem(s) and Goals/Treatment Plan: * c/w current tx and plan * Increased Seroquel to 250 mg HS on 03/04/18 * No new lab results thus far * Vitals reviewed and noted below: Selected Entries 03/03/18 03/03/18 07:25 16:00 Temperature 98.3 F Pulse Rate 56 L 81 Respiratory 20 Rate Blood Pressure 102/68 136/96 H Estimated Date of D/C: 03/06/18
--- NOTE | 2018-03-05 10:19 | PCM.PYCHPN ---
Psychiatric Progress Note - Psychiatric Progress Note Patient seen today, length of contact: 30 minutes Problems Identified/Issues Discussed: I reviewed recent notes and patient was interviewed at bedside. He is reasonably groomed and superficially cooperative with my questioning. Overall his affect remains odd, poorly related and paranoid. Nonetheless he is oriented to month, year and location. It still doesn't take much intervention on my part to elicit random paranoid delusions from him. He tells me "you don't understand, YOU DON'T UNDERSTAND, the people are gossiping, you don't know what's going on". Patient has been disorganized on the unit with periods of agitation requiring IM medications last week. Patient can be isolative but has been more visible on the unit. Staff observed him talking to himself on Tuesday and patient reported hearing voices telling him to hurt himself. He received prn Haldol and Ativan. He denies hallucinations even when I directly asked about this episode. Patient can tolerate being around peers in the dayroom, eating snacks, watching tv and drawing. Thus far there have been no major behavioral issues over the weekend. Diagnostic Results: psychosis nos rule out schizophrenia r/o substance induced psychosis r/o substance induced mood disorder polysubstance abuse Medication Change: Yes (seroquel increased) Medical Record Reviewed: Yes Mental Status Examination - Cognitive Function Orientation: Person, Place Memory: Impaired Attention: Poor Concentration: Poor Association: Loose Fund of Knowledge: Poor - Mood Mood: Depressed - Affect Affect: Blunted - Formal Thought Process Formal Thought Process: Hallucinations (Staff observed him talking to himself on Tuesday and patient reported hearing voices telling him to hurt himself.), Delusions, Paranoia, Flight of ideas, Circumstantial, Thought Broadcasting, Word Salad, Perservation - Suicidal Ideation Suicidal Ideation: No - Homicidal Ideation Homicidal Ideation: No Goal/Treatment Plan - Goal/Treatment Plan Need for Continued Stay: Remain at risks for inpatient hospitalization, Severe depression anxiety, Discharge may exacerbated symptoms, Severe functional impairment Progress Toward Problem(s) and Goals/Treatment Plan: * c/w current tx and plan * Increased Seroquel to 250 mg HS on 03/04/18 * No new lab results thus far * Vitals reviewed and noted below: Selected Entries 03/04/18 03/04/18 06:46 15:42 Temperature 98.6 F Pulse Rate 66 70 Respiratory 20 Rate Blood Pressure 109/64 110/81 Estimated Date of D/C: 03/06/18
--- NOTE | 2018-03-06 15:40 | PCM.PYCHPN ---
Psychiatric Progress Note - Psychiatric Progress Note Patient seen today, length of contact: 30 minutes Patient Chief Complaint: "I will never use drugs again" Problems Identified/Issues Discussed: Suicide/ homicide prevention, past psychiatric h/o, current psychiatric sympt oms, medical problems, risk/benefits and alternatives of medications, medications compliance, coping strategies, substance abuse h/o, relapse prevention, importance of follow up with psychiatrist and therapist, discharge plan. Medical Problems: patient reported being healthy Diagnostic Results: 02/27/18 19:53 02/27/18 19:53 Lab Results 02/28/18 07:45: TSH 3rd Generation 0.71 02/28/18 07:45: Fasting Glucose 91, Triglycerides 61, Cholesterol 162, LDL Cholesterol Direct 82, HDL Cholesterol 69 H 02/28/18 07:45: RPR Nonreactive 02/27/18 19:53: Alcohol, Quantitative < 10 02/27/18 19:53: Salicylates < 1 L, Acetaminophen < 10.0 L 02/27/18 19:53: Urine Opiates Screen Negative, Urine Methadone Screen Negative, Ur Barbiturates Screen Negative, Ur Phencyclidine Scrn Positive H, Ur Amphetamin es Screen Negative, U Benzodiazepines Scrn Negative, U Oth Cocaine Metabols Negative, U Cannabinoids Screen Positive H 02/27/18 19:53: Sodium 137, Potassium 4.1, Chloride 99, Carbon Dioxide 28, Anion Gap 14, BUN 19, Creatinine 1.2, Est GFR ( Amer) > 60, Est GFR (Non-Af Amer) > 60, Random Glucose 102, Calcium 9.3, Magnesium 1.8, Total Bilirubin 0.7, AST 40, ALT 38, Alkaline Phosphatase 64, Total Protein 7.5, Albumin 4.3, Globulin 3.2, Albumin/Globulin Ratio 1.3 02/27/18 19:53: Urine Color Yellow, Urine Appearance Clear, Urine pH 6.5, Ur S pecific [place] 1.025, Urine Protein Negative, Urine Glucose (UA) Negative, Urine Ketones Negative, Urine Blood Negative, Urine Nitrate Negative, Urine Bilirubin Negative, Urine Urobilinogen 4.0 H, Ur Leukocyte Esterase Negative 02/27/18 19:53: WBC 6.1, RBC 4.92, Hgb 14.0, Hct 43.4, MCV 88.2, MCH 28.5, MCHC 32.3, RDW 12.7, Plt Count 232, MPV 9.8, Gran % 42.4 L, Lymph % (Auto) 41.6 H, [place] % (Auto) 6.2 H, Eos % (Auto) 8.7 H, Baso % (Auto) 1.1, Gran # 2.59, Lymph # (Auto) 2.5, [place] # (Auto) 0.4, Eos # (Auto) 0.5, Baso # (Auto) 0.07 Vital Signs Temp Pulse Resp BP Pulse Ox 03/01/18 07:21 97.9 F 75 20 120/89 02/28/18 16:00 70 110/75 02/28/18 07:22 98.0 F 66 20 118/76 02/27/18 23:37 74 18 127/85 100 02/27/18 22:29 78 18 126/68 100 02/27/18 21:20 89 18 132/70 100 02/27/18 19:30 98.2 F 95 H 18 136/79 100 DSM 5 Symptoms Update: pt is 33year old [place] Island[place] AA male with not known previous history of psychiatric admissions, not known previous psychiatric history, patient has history of substance abuse and dependence, patient denied history of admission to the psychiatric inpatient unit, patient came to the hospital for evaluation of depressive symptoms, possible suicidal ideation, patient requires further evaluation and stabilization and medications adjustment and titration. Patient was seen today next to the Nursing station, patient presented to be disorganized but try his best to present well. patient has some improvement with his presentation, patient is more organized in his thoughts, Staff reported patient was talking to himself, reported to hear voices telling him to kill himself over Tuesday, but denied any voices today. Patient denied thoughts of harming himself or others, denied intent or plan. patient reported that from now on she will stop using drugs because of "bad experience". He so far patient tolerates medications well, no side effects observed or reported, aims 0, no EPS. DSM 5 Diagnosis: psychosis nos rule out schizophrenia r/o substance induced psychosis r/o substance induced mood disorder polysubstance abuse Medication Change: Yes (seroquel increased) Medical Record Reviewed: Yes Mental Status Examination - Cognitive Function Orientation: Person, Place Memory: Impaired Attention: Poor (some improvement) Concentration: Poor (some improvement) Association: Loose Fund of Knowledge: Poor - Mood Mood: Depressed ("I feel better") - Affect Affect: Blunted - Formal Thought Process Formal Thought Process: Hallucinations (Staff observed him talking to himself on Tuesday and patient reported hearing voices telling him to hurt himself.), Delusions, Paranoia, Flight of ideas, Circumstantial, Thought Broadcasting, Word Salad, Perservation - Suicidal Ideation Suicidal Ideation: No - Homicidal Ideation Homicidal Ideation: No Goal/Treatment Plan - Goal/Treatment Plan Need for Continued Stay: Remain at risks for inpatient hospitalization, Severe depression anxiety, Discharge may exacerbated symptoms, Severe functional impairment Progress Toward Problem(s) and Goals/Treatment Plan: Milieu/structure/supportive therapy Medical consult will be considered Seroquel 200mg po am and 50 mg at nighttime for psychosis As needed medications SW consultation for discharge plan and social issues Family involvement Follow up on labs Will monitor closely Pt was educated about risk/benefits and alternatives of medications, coping strategies (safety plan, suicide prevention), relapse prevention, importance of follow up with psychiatrist and therapist, stay away from drugs/alcohol/smoking Estimated Date of D/C: 03/08/18
[2018-03-07 06:53] VITALS: BP 94/42; PULSE 74; RESP 16; TEMP 97.9
--- NOTE | 2018-03-07 16:18 | PCM.PYCHDC ---
Mental Status Examination - Mental Status Examination Orientation: Person, Place, Situation, Time Memory: Impaired (bbut improved) Mood: Neutral Affect: Constricted (but reactive and mood congruent) Speech: Appropriate Attention: Poor (but with much improvement) Concentration: Poor (bbut with much improvement) Association: Loose (aseline) Fund of Knowledge: WNL Formal Thought Process: No Impairment (thought process better organized but still has circumstantiality) Description of patient's judgement and insight: Pt has improved insight into mental and medical illness, pt was compliant with medications and unit rules and regulations, pt was going to groups, was calm, co operative, socially appropriate, no behavioral incidents, no agitation, no aggression. Psychotic Thoughts and Behaviors: Pt denied v/a/t hallucinations, denied paranoid ideations, pt does not appear to be psychotic, and thought process is goal directed. Suicidal Ideation: No Current Homicidal Ideation?: No Plan: pt adamantly denied thoughts of harming self or others denied intent or plan. Discharge Summary - Discharge Note Reason for Hospitalization: pt was admitted for evaluation of depressive symptoms, possible suicidal ideation and psychosis. Psychiatric History (includes Medical, Family, Personal Hx): see HPI Laboratory Data: 02/27/18 19:53 02/27/18 19:53 Lab Results 02/28/18 07:45: TSH 3rd Generation 0.71 02/28/18 07:45: Fasting Glucose 91, Triglycerides 61, Cholesterol 162, LDL Cholesterol Direct 82, HDL Cholesterol 69 H 02/28/18 07:45: RPR Nonreactive 02/27/18 19:53: Alcohol, Quantitative < 10 02/27/18 19:53: Salicylates < 1 L, Acetaminophen < 10.0 L 02/27/18 19:53: Urine Opiates Screen Negative, Urine Methadone Screen Negative, Ur Barbiturates Screen Negative, Ur Phencyclidine Scrn Positive H, Ur Amphetamines Screen Negative, U Benzodiazepines Scrn Negative, U Oth Cocaine Metabols Negative, U Cannabinoids Screen Positive H 02/27/18 19:53: Sodium 137, Potassium 4.1, Chloride 99, Carbon Dioxide 28, Anion Gap 14, BUN 19, Creatinine 1.2, Est GFR ( Amer) > 60, Est GFR (Non-Af Amer) > 60, Random Glucose 102, Calcium 9.3, Magnesium 1.8, Total Bilirubin 0.7, AST 40, ALT 38, Alkaline Phosphatase 64, Total Protein 7.5, Albumin 4.3, Globulin 3.2, Albumin/Globulin Ratio 1.3 02/27/18 19:53: Urine Color Yellow, Urine Appearance Clear, Urine pH 6.5, Ur Specific Cardinal 1.025, Urine Protein Negative, Urine Glucose (UA) Negative, Urine Ketones Negative, Urine Blood Negative, Urine Nitrate Negative, Urine Bilirubin Negative, Urine Urobilinogen 4.0 H, Ur Leukocyte Esterase Negative 02/27/18 19:53: WBC 6.1, RBC 4.92, Hgb 14.0, Hct 43.4, MCV 88.2, MCH 28.5, MCHC 32.3, RDW 12.7, Plt Count 232, MPV 9.8, Gran % 42.4 L, Lymph % (Auto) 41.6 H, [place] % (Auto) 6.2 H, Eos % (Auto) 8.7 H, Baso % (Auto) 1.1, Gran # 2.59, Lymph # (Auto) 2.5, [place] # (Auto) 0.4, Eos # (Auto) 0.5, Baso # (Auto) 0.07 Vital Signs Temp Pulse Resp BP Pulse Ox 03/07/18 06:50 97.9 F 74 16 94/42 L 03/06/18 16:00 84 108/75 03/06/18 07:28 98.7 F 72 20 105/66 03/06/18 07:22 98.7 F 72 20 105/66 03/05/18 07:42 98.4 F 64 20 100/65 03/04/18 15:42 70 110/81 03/04/18 06:46 98.6 F 66 20 109/64 03/03/18 16:00 81 136/96 H 03/03/18 07:25 98.3 F 56 L 20 102/68 03/02/18 16:00 67 111/75 03/02/18 07:30 98.4 F 57 L 20 110/66 03/01/18 15:00 72 H 116/62 03/01/18 07:21 97.9 F 75 20 120/89 02/28/18 16:00 70 110/75 02/28/18 07:22 98.0 F 66 20 118/76 02/27/18 23:37 74 18 127/85 100 02/27/18 22:29 78 18 126/68 100 02/27/18 21:20 89 18 132/70 100 02/27/18 19:30 98.2 F 95 H 18 136/79 100 Consultations:: List each consultation separately and include: 1. Reason for request. 2. Findings. 3. Follow-up Consultations: patient seems to be healthy, vital signs are stable. Summary of Hospital Course include:: 1. Description of specific treatment plan utilized for patients during their course of treatmen. 2. Summarize the time- course for resolution of acute symptoms and/or regressed behaviors. 3. Describe issues identified and worked on during hospitalization. 4. Describe medication utilized. 5. Describe medical problems identified and treated. 6. Reassessment of suicide risk Summary of Hospital Course: year old Taj[place] AA male with not known previous history of psychiatric admissions, not known previous psychiatric history, patient has history of substance abuse and dependence, patient denied history of admission to the psychiatric inpatient unit, patient came to the hospital for evaluation of d epressive symptoms, possible suicidal ideation, patient requires further evaluation and stabilization and medications adjustment and titration. initially patient presented to be sleepy, poor personal hygiene, good ADLs, no eye contact, patient had difficulties to stay focused and concentrate during the interview, patient was falling asleep during the interview. patient reported that he lost his wallet, money, patient reported that she lost it" in the hallway", patient was not able to participate in interview, patient reported that he was kicked out from his mother's home because of drugs, patient said that he hears voices in his had, reported that he feels depressed and suicidal no clear plan. pt presented to be psychotic with disorganized thought process, poor impulse control please see admission note for more detailed information 02/27/18 19:53 02/27/18 19:53 Lab Results 02/28/18 07:45: TSH 3rd Generation 0.71 02/28/18 07:45: Fasting Glucose 91, Triglycerides 61, Cholesterol 162, LDL Cholesterol Direct 82, HDL Cholesterol 69 H 02/27/18 19:53: Alcohol, Quantitative < 10 02/27/18 19:53: Salicylates < 1 L, Acetaminophen < 10.0 L 02/27/18 19:53: Urine Opiates Screen Negative, Urine Methadone Screen Negative, Ur Barbiturates Screen Negative, Ur Phencyclidine Scrn Positive H, Ur Amphetamines Screen Negative, U Benzodiazepines Scrn Negative, U Oth Cocaine Metabols Negative, U Cannabinoids Screen Positive H 02/27/18 19:53: Sodium 137, Potassium 4.1, Chloride 99, Carbon Dioxide 28, Anion Gap 14, BUN 19, Creatinine 1.2, Est GFR ( Amer) > 60, Est GFR (Non-Af Amer) > 60, Random Glucose 102, Calcium 9.3, Magnesium 1.8, Total Bilirubin 0.7, AST 40, ALT 38, Alkaline Phosphatase 64, Total Protein 7.5, Albumin 4.3, Globulin 3.2, Albumin/Globulin Ratio 1.3 02/27/18 19:53: Urine Color Yellow, Urine Appearance Clear, Urine pH 6.5, Ur Specific Cardinal 1.025, Urine Protein Negative, Urine Glucose (UA) Negative, Urine Ketones Negative, Urine Blood Negative, Urine Nitrate Negative, Urine Bilirubin Negative, Urine Urobilinogen 4.0 H, Ur Leukocyte Esterase Negative 02/27/18 19:53: WBC 6.1, RBC 4.92, Hgb 14.0, Hct 43.4, MCV 88.2, MCH 28.5, MCHC 32.3, RDW 12.7, Plt Count 232, MPV 9.8, Gran % 42.4 L, Lymph % (Auto) 41.6 H, [place] % (Auto) 6.2 H, Eos % (Auto) 8.7 H, Baso % (Auto) 1.1, Gran # 2.59, Lymph # (Auto) 2.5, [place] # (Auto) 0.4, Eos # (Auto) 0.5, Baso # (Auto) 0.07 Vital Signs Temp Pulse Resp BP Pulse Ox 02/28/18 07:22 98.0 F 66 20 118/76 02/27/18 23:37 74 18 127/85 100 02/27/18 22:29 78 18 126/68 100 02/27/18 21:20 89 18 132/70 100 02/27/18 19:30 98.2 F 95 H 18 136/79 100 patient was stabilized on the following medications: Seroquel 200mg po am and 300mg at nighttime for psychosis ppatient tolerated medications well, no side effects observed or reported, aims 0, no EPS. Over the course of this hospitalization pt was attending groups, pt also had medication management, had therapeutic milieu. Overall pt improved significantly, pt's affect became brighter, pt was less depressed, has realistic future oriented plans, patient wants to find a job, patient was to be discharged residential, patient wants to maintain his sobriety, pt also does not appear to be psychotic, or anxious, pt was socially appropriate, no behavioral issues, pts insight improved as well and soon pt deemed to be ready for discharge. At the time of the discharge pt denied been depressed, denied thoughts of harming self or others, denied psychotic symptoms, and pt does not appeared to be psychotic, denied been anxious, pt is not in imminent danger to self or others, pt was referred to [facility] dual dx program, information about follow up appointment, time and address provided to the pt, it is patient responsibility to follow up with outpatient clinic, PMD as well as specialists (see note for more detailed information). In case pt will need to obtain results of studies pending at discharge pt was provided with contact information of Psychiatric Inpatient unit [phone] as well as Medical Record Department [phone]. Naltrexone treatment not indicated at this time, Patient was positive for PCP only.. Counseling about smoking and alcohol cessation provided AA meetings as well as smoking cessation treatment program information was provided by the pt was provided with prescriptions for all of medications (please see medication reconciliation form) Pt was educated about safety plan in case of worsening of symptoms or in case of suicidal or homicidal ideation call 911 or go to the nearest ER, also was educated to take meds as prescribed and stay away from drugs, pt verbalized understanding. - Diagnosis (1) Mood disorder due to known physiological condition, unspecified Status: Acute Priority: High (2) Polysubstance abuse Status: Chronic Priority: High - Final Diagnosis (DSM 5) Condition upon Discharge: IMPROVED Disposition: HOME/ ROUTINE Follow-up Treatment Plan: At the time of the discharge pt denied been depressed, denied thoughts of harming self or others, denied psychotic symptoms, and pt does not appeared to be psychotic, denied been anxious, pt is not in imminent danger to self or others, pt was referred to [facility] dual dx program, information about follow up appointment, time and address provided to the pt, it is patient responsibility t o follow up with outpatient clinic, PMD as well as specialists (see note for more detailed information). In case pt will need to obtain results of studies pending at discharge pt was provided with contact information of Psychiatric Inpatient unit [phone] as well as Medical Record Department [phone]. Naltrexone treatment not indicated at this time, Patient was positive for PCP only.. Counseling about smoking and alcohol cessation provided AA meetings as well as smoking cessation treatment program information was provided by the pt was provided with prescriptions for all of medications (please see medication reconciliation form) Pt was educated about safety plan in case of worsening of symptoms or in case of suicidal or homicidal ideation call 911 or go to the nearest ER, also was educated to take meds as prescribed and stay away from drugs, pt verbalized understanding. Prescriptions/Medication Reconciliation: Nicotine 14 mg/24 hr [Nicoderm CQ] 1 patch TD DAILY #14 patch QUEtiapine [Seroquel] 200 mg PO DAILY #14 tab QUEtiapine [SEROquel] 300 mg PO HS #14 tab - Smoking Cessation Smoking Cessation Medication prescribed: Yes - Antipsychotic Medications Pt discharged on 2 or more routine antipsychotic medications: No
== END 2018-03-07 15:45 | disposition home or self-care (01) ==
LOC: ED 19:19 → ERH 22:13 → PSYC 02-28 00:05
PROVIDERS: ADMIT Psychiatry & Neurology Psychiatry; ATTEND Psychiatry & Neurology Psychiatry
DX: F06.30 Mood disorder due to known physiological condition, unspecified (principal); F16.10 Hallucinogen abuse, uncomplicated; F12.90 Cannabis use, unspecified, uncomplicated; Z59.0 Homelessness

== ENCOUNTER 2018-04-24 07:55 | Emergency (ER) | payer OTHER ==
[2018-04-24 08:56] VITALS: BMI 27.2
--- NOTE | 2018-04-24 09:01 | ED PDOC ---
Arrival/HPI - General Time Seen by Provider: 04/24/18 08:51 Historian: Patient - History of Present Illness Narrative History of Present Illness (Text): 04/24/18 08:58 33 year old male smoker, with no significant past medical history, who presents to the emergency department complaining of hearing voices. Patient states the voices are whispering and can't understand what they are saying. Patient is requesting seroquel and congentin prescription. Patient is homeless. Patient denies any medical complaints, suicidal ideation, homicidal ideation, or any other complaints. Time/Duration: Prior to Arrival Symptom Onset: Gradual Symptom Course: Unchanged Activities at Onset: Light Context: Street Associated Symptoms (Text): 04/24/18 09:10 Patient is homeless. He is requesting prescriptions for Cogentin and Seroquel. He has auditory hallucinations. Denies suicidal or homicidal ideation. Past Medical History - Provider Review Nursing Documentation Reviewed: Yes - Infectious Disease Hx of Infectious Diseases: None - Cardiac Hx Hypertension: No - Pulmonary Hx Tuberculosis: No - Neurological Hx Seizures: No - Hematological/Oncological Hx Cancer: No - Genitourinary/Gynecological Hx Sexually Transmitted Diseases: No - Psychiatric Hx Psychophysiologic Disorder: No Hx Substance Use: Yes - Anesthesia Hx Anesthesia: No Family/Social History - Physician Review Nursing Documentation Reviewed: Yes Family/Social History: Unknown Family HX Smoking Status: Current Some Days Smoker Hx Alcohol Use: Yes Frequency of alcohol use: Socially Hx Substance Use: Yes Substance used: weed Allergies/Home Meds Allergies/Adverse Reactions: Allergies No Known Allergies Allergy (Verified 04/13/18 15:48) Review of Systems - Physician Review All systems were reviewed & negative as marked: Yes - Review of Systems Constitutional: absent: Fatigue, Fevers Respiratory: Normal Cardiovascular: Normal Gastrointestinal: Normal Neurological: Normal Psychiatric: Anxiety, Other (hearing voices). absent: Depression, Suicidal Wilian ation Physical Exam Vital Signs Reviewed: Yes Temperature: Afebrile Blood Pressure: Normal Pulse: Regular Respiratory Rate: Normal Appearance: Positive for: Well-Appearing, Non-Toxic, Comfortable Pain Distress: None Mental Status: Positive for: Alert and Oriented X 3 - Systems Exam Head: Present: Atraumatic, Normocephalic Pupils: Present: PERRL Extroacular Muscles: Present: EOMI Conjunctiva: Present: Normal Mouth: Present: Moist Mucous Membranes Pharnyx: No: ERYTHEMA, EXUDATE, TONSILS ENLARGED Respiratory/Chest: Present: Clear to Auscultation, Good Air Exchange Cardiovascular: Present: Regular Rate and Rhythm Abdomen: No: Tenderness, Distention, Peritoneal Signs, Rebound, Guarding Upper Extremity: Present: Normal Inspection. No: Cyanosis, Edema Lower Extremity: Present: Normal Inspection. No: Edema Neurological: Present: GCS=15, CN II-XII Intact, Speech Normal, Motor Func Grossly Intact Skin: Present: Warm, Dry, Normal Color. No: Rashes Psychiatric: Present: Alert, Oriented x 3, Normal Insight, Normal Concentration, Normal Affect, Normal Mood, Anxious, Hallucinations. No: Agitated, Depressed Mood, Suicidal Ideation, Homicidal Ideation, Delusional, Intoxicated, Lethargic Medical Decision Making ED Course and Treatment: 04/24/18 09:03 Impression: 33 year old male presents to the emergency department complaining of hearing voices. Plan: -- EKG -- Labs -- UA -- Reassess and disposition Progress Notes: 04/24/18 10:25 Seen and evaluated by crisis who will discharge and referred to the outpatient mental health clinic today for prescription renewal. 04/24/18 11:32 EKG shows normal sinus rhythm rate approximately [address] or T-wave changes. - Scribe Statement The provider has reviewed the documentation as recorded by the Scribzoran Caruso All medical record entries made by the Suzanneibzoran were at my direction and personally dictated by me. I have reviewed the chart and agree that the record accurately reflects my personal performance of the history, physical exam, medical decision making, and the department course for this patient. I have also personally directed, reviewed, and agree with the discharge instructions and disposition. Disposition/Present on Arrival - Present on Arrival Any Indicators Present on Arrival: No History of DVT/PE: No History of Uncontrolled Diabetes: No Urinary Catheter: No History of Decub. Ulcer: No History Surgical Site Infection Following: None - Disposition Have Diagnosis and Disposition been Completed?: Yes Diagnosis: Substance abuse, Depression, Anxiety Disposition: HOME/ ROUTINE Disposition Time: 10:26 Patient Plan: Discharge Condition: GOOD Discharge Instructions (ExitCare): Depression, Anxiety, Adult (DC), Drug Abuse and Drug Addiction (DC) Referrals: PCP,NO [Primary Care Provider] - Follow up with primary Forms: [employer] (Albanian)
[2018-04-24 09:02] VITALS: TEMP 98.8; O2SAT 99
[2018-04-24 09:20] LABS: PH,URINE 7.5 (4.7-8.0); URINE BILIRUBIN NEGATIVE (NEGATIVE); URINE BLOOD NEGATIVE (NEGATIVE); URINE GLUCOSE (UA) NEGATIVE (NEGATIVE); URINE LEUKOCYTE ESTERASE NEGATIVE Leu/uL (NEGATIVE); URINE PROTEIN 30 mg/dL (<30 mg/dL); URINE UROBILINOGEN 0.2 E.U./dL (<1 E.U./dL)
[2018-04-24 09:24] LABS: URINE APPEARANCE CLEAR (CLEAR); URINE COLOR YELLOW (YELLOW)
[2018-04-24 09:41] LABS: BASO # 0.06 K/mm3 (0.0-2.0); BASO % 1.5 % (0.0-3.0); EOS # 0.3 (0.0-0.7); EOS % 8.2 % (1.5-5.0); GRAN # 1.99 (1.4-6.5); GRAN % 49.2 % (50.0-68.0); HEMOGLOBIN 13.9 g/dL (14.0-18.0); LYMPH # 1.4 (1.2-3.4); LYMPH % 35.4 % (22.0-35.0); MEAN CELL VOLUME 89.2 fl (80.0-105.0); MEAN CORPUSCULAR HEMOGLOBIN 28.4 pg (25.0-35.0); MEAN CORPUSCULAR HGB CONC 31.9 g/dl (31.0-37.0); MEAN PLATELET VOLUME 9.9 fl (7.0-11.0); MONO # 0.2 (0.1-0.6); MONO % 5.7 % (1.0-6.0); RBC 4.89 10^6/uL (3.5-6.1); RED CELL DISTRIBUTION WIDTH 12.5 % (11.5-14.5)
[2018-04-24 09:42] LABS: URINE RBC NEGATIVE /hpf (0-2); URINE WBC 0 - 2 /hpf (0-6)
[2018-04-24 09:43] LABS: URINE BACTERIA SMALL /hpf
[2018-04-24 09:51] LABS: ALB/GLOB RATIO 1.5 (1.1-1.8); ALBUMIN 4.3 g/dL (3.0-4.8); ALT/SGPT 31 U/L (7-56); AST/SGOT 23 U/L (17-59); BLOOD UREA NITROGEN 13 mg/dL (7-21); CALCIUM 9.6 mg/dL (8.4-10.5); GFR NON-AFRICAN AMERICAN > 60
[2018-04-24 09:52] LABS: ACETAMINOPHEN < 10.0 ug/ml (10.0-20.0); SALICYLATE < 1 mg/dL (2.0-20.0)
[2018-04-24 10:05] LABS: BARBITURATES, UR NEGATIVE (NEGATIVE); BENZODIAZEPINES, UR NEGATIVE (NEGATIVE); OPIATES, UR NEGATIVE (NEGATIVE); PHENCYCLIDINE, UR NEGATIVE (NEGATIVE)
[2018-04-24 10:43] VITALS: BP 121/72; PULSE 88; RESP 16
--- NOTE | 2018-04-24 13:33 | CARD ---
APPROVED REPORT Date of service: 04/24/2018 EKG Measurement Heart [id number] <Conclusion> Normal sinus rhythm Normal ECG
== END 2018-04-24 11:05 | disposition home or self-care (01) ==
LOC: ED 07:55
DX: F19.10 Other psychoactive substance abuse, uncomplicated (principal); F32.9 Major depressive disorder, single episode, unspecified; F41.9 Anxiety disorder, unspecified; Z59.0 Homelessness

== ENCOUNTER 2018-05-25 03:40 | Emergency (ER) | payer SELFPAY ==
[2018-05-25 03:40] VITALS: BMI 27.2
[2018-05-25 04:37] VITALS: RESP 18; TEMP 97.6
--- NOTE | 2018-05-25 04:55 | ED PDOC ---
Arrival/HPI - General Chief Complaint: Medical Clearance Time Seen by Provider: 05/25/18 04:18 Historian: Patient - History of Present Illness Narrative History of Present Illness (Text): 05/25/18 04:18 El Fisher is a 33 year old male, with a past medical history of substance abuse, who presents to the emergency department looking for a place to rest. Patient is homeless, reports he missed his bus, and requesting a place to sleep until morning. Patient denies any substance abuse, suicidal ideation, homicidal ideation, headache, dizziness, chest pain, shortness of breath, nausea, vomiting, diarrhea, back pain, neck pain, or any other complaint. Time/Duration: Prior to Arrival Symptom Onset: Other (homeless) Activities at Onset: Light Context: Street Past Medical History - Provider Review Nursing Documentation Reviewed: Yes - Infectious Disease Hx of Infectious Diseases: None - Cardiac Hx Hypertension: No - Pulmonary Hx Tuberculosis: No - Neurological Hx Seizures: No - Hematological/Oncological Hx Cancer: No - Genitourinary/Gynecological Hx Sexually Transmitted Diseases: No - Psychiatric Hx Psychophysiologic Disorder: No Hx Substance Use: Yes - Anesthesia Hx Anesthesia: No Family/Social History - Physician Review Nursing Documentation Reviewed: Yes Family/Social History: Other (Brother dx with schizophrenia) Smoking Status: Current Some Days Smoker Hx Alcohol Use: Yes Hx Substance Use: Yes Substance used: weed Allergies/Home Meds Allergies/Adverse Reactions: Allergies No Known Allergies Allergy (Verified 04/13/18 15:48) Review of Systems - Physician Review All systems were reviewed & negative as marked: Yes - Review of Systems Constitutional: absent: Fevers, Night Sweats Respiratory: absent: SOB, Cough Cardiovascular: absent: Chest Pain Gastrointestinal: absent: Abdominal Pain, Diarrhea, Nausea, Vomiting Genitourinary Male: absent: Dysuria Musculoskeletal: absent: Back Pain, Neck Pain Neurological: absent: Headache, Dizziness Physical Exam Vital Signs Reviewed: Yes Vital Signs Temp Pulse Resp BP Pulse Ox 05/25/18 04:34 97.6 F 71 18 110/71 96 Temperature: Afebrile Blood Pressure: Normal Pulse: Regular Respiratory Rate: Normal Appearance: Positive for: Well-Appearing, Non-Toxic, Comfortable Pain Distress: None Mental Status: Positive for: Alert and Oriented X 3 - Systems Exam Head: Present: Atraumatic, Normocephalic Pupils: Present: PERRL Extroacular Muscles: Present: EOMI Conjunctiva: Present: Normal Mouth: Present: Moist Mucous Membranes Neck: Present: Normal Range of Motion Respiratory/Chest: Present: Clear to Auscultation, Good Air Exchange. No: Respiratory Distress, Accessory Muscle Use Cardiovascular: Present: Regular Rate and Rhythm, Normal S1, S2. No: Murmurs Abdomen: No: Tenderness, Distention, Peritoneal Signs Back: Present: Normal Inspection Upper Extremity: Present: Normal Inspection. No: Cyanosis, Edema Lower Extremity: Present: Normal Inspection. No: Edema Neurological: Present: GCS=15, CN II-XII Intact, Speech Normal Skin: Present: Warm, Dry, Normal Color. No: Rashes Psychiatric: Present: Alert, Oriented x 3, Normal Insight, Normal Concentration Medical Decision Making ED Course and Treatment: 05/25/18 04:18 Impression: Patient is a 33 year old male who presents to the Emergency department looking for a place to rest. Plan: -- Reassess and disposition Prior Visits: Notes and results from previous visits were reviewed. Progress Notes: - Scribe Statement The provider has reviewed the documentation as recorded by the Serjio barone with Ginger All medical record entries made by the Scribzoran were at my direction and personally dictated by me. I have reviewed the chart and agree that the record accurately reflects my personal performance of the history, physical exam, medical decision making, and the department course for this patient. I have also personally directed, reviewed, and agree with the discharge instructions and disposition. Disposition/Present on Arrival - Present on Arrival Any Indicators Present on Arrival: No History of DVT/PE: No History of Uncontrolled Diabetes: No Urinary Catheter: No History of Decub. Ulcer: No History Surgical Site Infection Following: None - Disposition Have Diagnosis and Disposition been Completed?: Yes Diagnosis: History of depression, Homeless Disposition: HOME/ ROUTINE Disposition Time: 06:38 Patient Plan: Discharge Condition: GOOD Forms: [employer] (Russian)
[2018-05-25 06:48] VITALS: BP 115/74; PULSE 74; O2SAT 97
== END 2018-05-25 06:48 | disposition home or self-care (01) ==
LOC: ED 03:40
DX: Z59.0 Homelessness (principal); F32.9 Major depressive disorder, single episode, unspecified